=== PATIENT | male | born 1980 | race Hispanic/Latino ===

== ENCOUNTER 2025-01-05 17:41 | Emergency (ER) | payer OTHER ==
[2025-01-05] MEDS ORDERED: CLOPIDOGREL 75 MG TABLET ONE (17:54)
[2025-01-05] MEDS ORDERED: ONDANSETRON 4 MG/2 ML VIAL ONE (17:54)
[2025-01-05] MEDS ORDERED: MORPHINE 4 MG/ML SYR ONE (17:55)
[2025-01-05] MEDS ORDERED: HEPARIN 5000 UNIT/ML 1 ML VIAL ONE (17:55)
[2025-01-05] MEDS ORDERED: FAMOTIDINE 20 MG/2 ML VIAL IV ONE (17:55)
[2025-01-05] MEDS ORDERED: HEPARIN/D5W 25,000 UNIT/500 ML BAG IV ONE (17:55)
[2025-01-05] MEDS ORDERED: ASPIRIN 81 MG CHEWABLE TABLET ONE (17:55)
[2025-01-05] MEDS ORDERED: TENECTEPLASE 50 MG/10 ML VIAL IV ONE (17:58)
[2025-01-05 18:01] LABS: Absolute Basophils 0.1 K/uL (0-0.5); Absolute Eosinophils 0.1 K/uL (0-0.5); Absolute Lymphocytes (CBC) 3.8 K/uL (0.7-4.9); Absolute Monocytes 1.2 K/uL (0.1-1.3); Absolute Neutrophil 7.5 K/uL (1.8-8.0); Basophils % 0.8 % (0-1.3); Eosinophils % 1.1 % (0-4.4); Hematocrit 46.9 % (39.6-49.0); Lymphocytes % 29.9 % (15.3-44.8); MCH 32.1 pg (27.0-35.0); MCHC 36.3 g/dL (32.0-36.0); MCV 88.3 fL (80-100); MPV 9.4 fL (7.6-11.3); Monocytes % 9.1 % (3.3-12.3); Neutrophils % 59.1 % (41.7-73.7); Nucleated Red Blood Cells % 0.1 % (0-0); Platelets 268 thou/uL (152-406); RBC Red Blood Cell Count 5.31 M/uL (4.33-5.43); Red Cell Distribution Width 12.7 % (12.1-15.2)
[2025-01-05 18:02] LABS: Hemoglobin 16.1 g/dL (13.6-17.9)
[2025-01-05 18:07] LABS: PT Prothrombin Time 12.3 SECONDS (10-13.0); Protime INR 1.08
--- NOTE | 2025-01-05 18:13 | ER ---
Nurse's Notes [facility] Name: Charlie Lackey Age: 44 yrs Sex: Male : 1980 Arrival Date: 01/05/2025 Time: 17:41 Bed 6 Private MD: Diagnosis: ST elevation (STEMI) myocardial infarction involving other sites-ANTERIOR LATERAL [place], LAD/LEFT CIRC;Essential (primary) hypertension Presentation: 01/05 17:15 Chief complaint: EMS states: CHEST PAIN, HEAT EXHAUSTION GIVEN 2 NITRO BY EMS BP db 145/100. Coronavirus screen: Client denies travel out of the [place] in the last 14 days. At this time, the client does not indicate any symptoms associated with coronavirus-19. Ebola Screen: Patient negative for fever greater than or equal to 101.5 degrees Fahrenheit, and additional compatible Ebola Virus Disease symptoms Patient denies exposure to infectious person. Patient denies travel to an Ebola-affected area in the 21 days before illness onset. No symptoms or risks identified at this time. Initial Sepsis Screen: Does the patient meet any 2 criteria? No. Patient's initial sepsis screen is negative. Does the patient have a suspected source of infection? No. Patient's initial sepsis screen is negative. Risk Assessment: Do you want to hurt yourself or someone else? Patient reports no desire to harm self or others. Onset of symptoms was January 05, 2025. Care prior to arrival: Medication(s) given: Nitroglycerin, 0.4 mg SL x 2, IV initiated. 20 GA, in the left antecubital area, Glucose check: 346. 17:15 Method Of Arrival: EMS: [facility] db 17:15 Acuity: MARIELLE 1 db Historical: - Allergies: 17:52 No Known Allergies; db - Home Meds: 17:52 Metformin Oral [Active]; Lisinopril Oral [Active]; db - PMHx: 17:52 Diabetes mellitus; Hypertensive disorder; db - Immunization history:: Adult Immunizations up to date. - Infectious Disease History:: Denies. - Family history:: not pertinent. - Social history:: Smoking status: Patient denies any tobacco usage or history of. Screenin:28 [facility] ED Fall Risk Assessment (Adult) History of falling in the last 3 months, db including since admission No falls in past 3 months (0 pts) Confusion or Disorientation No (0 pts) Intoxicated or Sedated No (0 pts) Impaired Gait No (0 pts) Mobility Assist Device Used No (0 pt) Altered Elimination No (0 pt) Score/Fall Risk Level 0 - 2 = Low Risk Oriented to surroundings, Maintained a safe environment. Abuse screen: Denies threats or abuse. Denies injuries from another. Nutritional screening: No deficits noted. Tuberculosis screening: No symptoms or risk factors identified. Assessment: 17:52 Reassessment: pt is refusing TNK at this time. iw 18:20 Reassessment: REPORT GIVEN TO [facility]O AT [facility]. db 18:20 Reassessment: Patient appears in no apparent distress at this time. Patient and/or db family updated on plan of care and expected duration. Pain level reassessed. Patient is alert, oriented x 3, equal unlabored respirations, skin warm/dry/pink. LIFE FLIGHT AT PATIENT BEDSIDE. General: Appears distressed, uncomfortable, Behavior is cooperative, anxious. Pain: Complains of pain in chest Pain does not radiate. Pain Pain began suddenly. Neuro: Level of Consciousness is awake, alert, obeys commands, Oriented to person, place, time, situation. Cardiovascular: Reports chest pain, diaphoresis, lightheadedness, shortness of breath, Capillary refill < 3 seconds Rhythm is [place] Chest pain. Respiratory: Airway is patent Respiratory effort is even, unlabored, Respiratory pattern is regular, symmetrical. Vital Signs: 17:45 BP 137 / 93; Pulse 79; Resp 30; Temp 98.3; Pulse Ox 100% on R/A; Weight 97.98 kg; db 18:05 BP 127 / 105; Pulse 75; Resp 18; Pulse Ox 100% on 2 lpm NC; db 18:06 BP 149 / 97; Pulse 78; Resp 24; Pulse Ox 100% on 2 lpm NC; db 18:15 BP 123 / 93 (/pedi); Pulse 80; Resp 25; Pulse Ox 100% on 2 lpm NC; db [place] Coma Score: 18:28 Eye Response: spontaneous(4). Motor Response: obeys commands(6). Verbal Response: db oriented(5). Total: 15. ED Course: 17:44 Patient arrived in ED. bd 17:44 Vincent Mo MD is Attending Physician. minh 17:45 Initial lab(s) drawn, by me, sent to lab. Inserted saline lock: 20 gauge in right db antecubital area, using aseptic technique. Blood collected. Flushed with 10 mL NS. 17:45 Maintain EMS IV. Dressing intact. Good blood return noted. Site clean \T\ dry. Gauge \T\ db site: 20 G LEFT AC. Flushed with 10 mL NS. Oxygen administration via nasal cannula \T\ 2L/min Response to oxygen therapy: symptoms improved. 17:50 Diamond Aguilar, RN is Primary Nurse. db 17:52 Triage completed. db 18:04 transfer initiated to [facility] by dr mo. bd 18:08 pt accepted in transfer to [facility] by dr kruse, admin approval given by joe Waldron, pt transferred by stepan townsend. 18:28 Patient has correct armband on for positive identification. Bed in low position. Call db light in reach. Side rails up X 1. Provided Education on: TRANSFER. Client placed on continuous cardiac and pulse oximetry monitoring. NIBP monitoring applied. monitoring analyst on. Pulse ox on. NIBP on. 18:29 Arm band placed on Patient placed. db 18:29 No provider procedures requiring assistance completed. Patient transferred, IV remains db in place. Administered Medications: 17:58 Drug: Aspirin PO Chewable Tablet 324 mg PO once; 81 mg tablets x 4 Route: PO; cm10 18:31 Follow up: Response: No adverse reaction db 18:03 Drug: Clopidogrel PO 600 mg PO once Route: PO; cm10 18:31 Follow up: Response: No adverse reaction db 18:03 Drug: Tenecteplase IV (Administer 10 ml NS flush BEFORE and AFTER tenecteplase) 50 mg cm10 IV at per protocol once {Co-Signature: ss (Shayy Lewis RN).} Route: IV; Rate: per protocol; Site: right forearm; 18:30 Follow up: Response: No adverse reaction; IV Status: Completed infusion db 18:07 Drug: Ondansetron IVP 8 mg IVP once; over 2 minutes Route: IVP; Site: right forearm; cm10 18:30 Follow up: Response: No adverse reaction db 18:08 Drug: morphine IVP or IV 4 mg IVP once over 4 mins Route: IVP; Infused Over: 4 mins; cm10 Site: right forearm; 18:30 Follow up: Response: No adverse reaction db 18:11 Drug: Heparin ([place]-Bolus with thrombolytic) - HEParin IVP 60 units/kg IVP once; Max 4000 cm10 units {Co-Signature: delisa (Shayy Lewis RN).} Route: IVP; Site: right forearm; 18:30 Follow up: Response: No adverse reaction db 18:12 Drug: Heparin ([place] Drip) 12 units/kg/[place] - ([place] [address] units, D5W IV 500 ml) IV at cm10 calculated rate Per protocol; Max initial rate 1000 units/hr {Co-Signature: delisa (Shayy Lewis RN).} Route: IV; Rate: calculated rate; Site: right forearm; 18:29 Follow up: Response: No adverse reaction; IV Status: Infusion continued upon transfer db 18:13 Drug: Famotidine IVP 20 mg IVP once; dilute with 10 mL 0.9% NaCl; give over 2 minutes cm10 Route: IVP; Site: left antecubital; 18:31 Follow up: Response: No adverse reaction db Medication: 18:28 VIS not applicable for this client. db Outcome: 18:13 ER care complete, transfer ordered by MD. wilkinson 18:28 Transferred by helicopter to [facility], Transfer form completed. db X-rays sent w/ patient. 18:28 critical 18:28 Instructed on the need for transfer, 18:31 Patient left the ED. db Signatures: Carmen Merritt Corey, MD MD cha Williams, Irene, RN RN Diamond Augilar RN RN db Martinez, Clarissa, RN RN cm10 Shayy Lewis RN ss Corrections: (The following items were deleted from the chart) 18:16 17:52 PMHx: Hypertensive disorder; db db 18:18 18:11 Heparin ([place]-Bolus with thrombolytic) - HEParin IVP 5878.8 units IVP in right cm10 forearm cm10 18:21 17:45 BP 137 / 93; Pulse 79bpm; Resp 30bpm; Temp 98.3F; 97.98 kg; db db
--- NOTE | 2025-01-05 18:13 | EDPHYS ---
Physician Documentation [facility] Name: Charlie Lackey Age: 44 yrs Sex: Male : 1980 Arrival Date: 01/05/2025 Time: 17:41 Bed 6 Private MD: DOMINGO Physician Vincent Mo HPI: 01/05 17:54 This 44 yrs old Male presents to ER via EMS with complaints of Chest Pain. [facility] 17:54 The patient or guardian reports chest pain that is located primarily in the substernal minh area. Onset: just prior to arrival. The pain does not radiate. Associated signs and symptoms: Pertinent positives: dizziness, nausea, shortness of breath. The chest pain is described as a heaviness, a pressure. Duration: The patient or guardian reports a single episode, that is still ongoing. Modifying factors: The symptoms are alleviated by nothing. the symptoms are aggravated by nothing. Severity of pain: At its worst the pain was moderate in the emergency department the pain is unchanged. EMS care prior to arrival includes: IV fluids, nitroglycerin, supplemental oxygen. The patient has experienced a previous episode, many years ago. Historical: - Allergies: 17:52 No Known Allergies; db - Home Meds: 17:52 Metformin Oral [Active]; Lisinopril Oral [Active]; db - PMHx: 17:52 Diabetes mellitus; Hypertensive disorder; db - Immunization history:: Adult Immunizations up to date. - Infectious Disease History:: Denies. - Family history:: not pertinent. - Social history:: Smoking status: Patient denies any tobacco usage or history of. ROS: 17:54 Constitutional: Negative for fever, chills, and weight loss, Eyes: Negative for injury, minh pain, redness, and discharge, ENT: Negative for injury, pain, and discharge, Neck: Negative for injury, pain, and swelling, Respiratory: Negative for shortness of breath, cough, wheezing, and pleuritic chest pain, Abdomen/GI: Negative for abdominal pain, nausea, vomiting, diarrhea, and constipation, Back: Negative for injury and pain, : Negative for injury, bleeding, discharge, and swelling, MS/Extremity: Negative for injury and deformity, Skin: Negative for injury, rash, and discoloration, Neuro: Negative for headache, weakness, numbness, tingling, and seizure, Psych: Negative for depression, anxiety, suicide ideation, homicidal ideation, and hallucinations, Allergy/Immunology: Negative for hives, rash, and allergies, Endocrine: Negative for neck swelling, polydipsia, polyuria, polyphagia, and marked weight changes, Hematologic/Lymphatic: Negative for swollen nodes, abnormal bleeding, and unusual bruising, 17:54 Cardiovascular: Positive for chest pain, of the chest, Exam: 18:04 Constitutional: This is a well developed, well nourished patient who is awake, alert, minh and in no acute distress. Head/Face: Normocephalic, atraumatic. Eyes: Pupils equal round and reactive to light, extra-ocular motions intact. Lids and lashes normal. Conjunctiva and sclera are non-icteric and not injected. Cornea within normal limits. Periorbital areas with no swelling, redness, or edema. ENT: Nares patent. No nasal discharge, no septal abnormalities noted. Tympanic membranes are normal and external auditory canals are clear. Oropharynx with no redness, swelling, or masses, exudates, or evidence of obstruction, uvula midline. Mucous membranes moist. Neck: Trachea midline, no thyromegaly or masses palpated, and no cervical lymphadenopathy. Supple, full range of motion without nuchal rigidity, or vertebral point tenderness. No Meningismus. Chest/axilla: Normal chest wall appearance and motion. Nontender with no deformity. No lesions are appreciated. Respiratory: Lungs have equal breath sounds bilaterally, clear to auscultation and percussion. No rales, rhonchi or wheezes noted. No increased work of breathing, no retractions or nasal flaring. Abdomen/GI: Soft, non-tender, with normal bowel sounds. No distension or tympany. No guarding or rebound. No evidence of tenderness throughout. Back: No spinal tenderness. No costovertebral tenderness. Full range of motion. Male : Normal genitalia with no discharge or lesions. Skin: Warm, dry with normal turgor. Normal color with no rashes, no lesions, and no evidence of cellulitis. MS/ Extremity: Pulses equal, no cyanosis. Neurovascular intact. Full, normal range of motion., bilateral aka Neuro: Awake and alert, GCS 15, oriented to person, place, time, and situation. Cranial nerves II-XII grossly intact. Motor strength 5/5 in all extremities. Sensory grossly intact. Cerebellar exam normal. Normal gait. Psych: Awake, alert, with orientation to person, place and time. Behavior, mood, and affect are within normal limits. 18:04 Cardiovascular: Rate: actual rate is 75 bpm, Rhythm: regular, Pulses: Pulses are 4+ in bilateral radial, brachial, femoral, popliteal, posterior tibial and and dorsalis pedis arteries.. Heart sounds: normal, Edema: is not appreciated, JVD: is not appreciated, 18:04 ECG was reviewed by the Attending Physician. Vital Signs: 17:45 BP 137 / 93; Pulse 79; Resp 30; Temp 98.3; Pulse Ox 100% on R/A; Weight 97.98 kg; db 18:05 BP 127 / 105; Pulse 75; Resp 18; Pulse Ox 100% on 2 lpm NC; db 18:06 BP 149 / 97; Pulse 78; Resp 24; Pulse Ox 100% on 2 lpm NC; db 18:15 BP 123 / 93 (/pedi); Pulse 80; Resp 25; Pulse Ox 100% on 2 lpm NC; db [place] Coma Score: 18:28 Eye Response: spontaneous(4). Motor Response: obeys commands(6). Verbal Response: db oriented(5). Total: 15. MDM: 17:45 Medical Screening Exam initiated minh 18:07 Differential diagnosis: abnormal EKG, acute myocardial infarction, chest wall pain, minh Cholelithiasis esophagitis, hiatal hernia, Sera-Stevens syndrome, pancreatitis, peptic ulcer disease, pericarditis, pleurisy, pneumonia, pulmonary embolus, stable angina, thoracic aortic disection, unstable angina. HEART Score: History: Highly Suspicious (2), ECG: Significant ST-deviation (2), Age: < or = 45 years (0). The patient was given aspirin in the Emergency Department. TRAVON Risk Score: 1 - Three or more CAD risk factors, 1- Known CAD, 1 - Recent [<24hrs] Severe Angina, 1 - ST deviation >0.5mm, TOTAL SCORE = 3. Data reviewed: vital signs, nurses notes, EMS record, lab test result(s), EKG, radiologic studies, plain films. Consideration of Admission/Observation Escalation of care including admission/observation considered. I considered the following discharge prescriptions or medication management in the emergency department Medications were administered in the Emergency Department. See MAR. Independent interpretation of the following test(s) in the Emergency Department EKG: See my EKG interpretation above. Test considered but Not performed: Ultrasound NO 2 D ECHO. Care significantly affected by the following chronic conditions: Hypertension, Obesity, CAD , STENT. Counseling: I had a detailed discussion with the patient and/or guardian regarding the historical points, exam findings, and any diagnostic results supporting the discharge/admit diagnosis, the presence of at least one elevated blood pressure reading (>120/80) during this emergency department visit, lab results, radiology results, the need to transfer to another facility, for higher level of care, [facility] does not immediately have the required specialist. 01/05 17:50 Order name: Basic Metabolic Panel [facility] 01/05 17:50 Order name: CBC with Diff [facility] 01/05 17:50 Order name: LFT's [facility] 01/05 17:50 Order name: Magnesium [facility] 01/05 17:50 Order name: NT PRO-BNP [facility] 01/05 17:50 Order name: PT-INR [facility] 01/05 17:50 Order name: Troponin HS [facility] 01/05 17:50 Order name: Lipase [facility] 01/05 17:50 Order name: EKG; Complete Time: 17:51 [facility] 01/05 17:50 Order name: Cardiac monitoring [facility] 01/05 17:50 Order name: EKG - Nurse/Tech [facility] 01/05 17:50 Order name: IV Saline Lock [facility] 01/05 17:50 Order name: Labs collected and sent minh 01/05 17:50 Order name: O2 Per Protocol [facility] 01/05 17:50 Order name: O2 Sat Monitoring [facility] 01/05 17:50 Order name: Misc. Order: ZOLLS; Complete Time: 18:16 [facility] EC:04 Rate is 75 beats/min. Rhythm is regular. QRS [place] is Normal. [place] interval is normal. QRS minh interval is normal. No Q waves. T waves are Normal. ST Segment is elevated in leads I, aVL, V2, V3, V4, V5. Clinical impression: Anterior OR - acute and Lateral OR - acute. Interpreted by me. Reviewed by me. Administered Medications: 17:58 Drug: Aspirin PO Chewable Tablet 324 mg PO once; 81 mg tablets x 4 Route: PO; cm10 18:31 Follow up: Response: No adverse reaction db 18:03 Drug: Clopidogrel PO 600 mg PO once Route: PO; cm10 18:31 Follow up: Response: No adverse reaction db 18:03 Drug: Tenecteplase IV (Administer 10 ml NS flush BEFORE and AFTER tenecteplase) 50 mg cm10 IV at per protocol once {Co-Signature: delisa (Shayy Lewis RN).} Route: IV; Rate: per protocol; Site: right forearm; 18:30 Follow up: Response: No adverse reaction; IV Status: Completed infusion db 18:07 Drug: Ondansetron IVP 8 mg IVP once; over 2 minutes Route: IVP; Site: right forearm; cm10 18:30 Follow up: Response: No adverse reaction db 18:08 Drug: morphine IVP or IV 4 mg IVP once over 4 mins Route: IVP; Infused Over: 4 mins; cm10 Site: right forearm; 18:30 Follow up: Response: No adverse reaction db 18:11 Drug: Heparin ([place]-Bolus with thrombolytic) - HEParin IVP 60 units/kg IVP once; Max 4000 cm10 units {Co-Signature: delisa (Shayy Lewis RN).} Route: IVP; Site: right forearm; 18:30 Follow up: Response: No adverse reaction db 18:12 Drug: Heparin ([place] Drip) 12 units/kg/[place] - ([place] [address] units, D5W IV 500 ml) IV at cm10 calculated rate Per protocol; Max initial rate 1000 units/hr {Co-Signature: delisa (Shayy Lewis RN).} Route: IV; Rate: calculated rate; Site: right forearm; 18:29 Follow up: Response: No adverse reaction; IV Status: Infusion continued upon transfer db 18:13 Drug: Famotidine IVP 20 mg IVP once; dilute with 10 mL 0.9% NaCl; give over 2 minutes cm10 Route: IVP; Site: left antecubital; 18:31 Follow up: Response: No adverse reaction db Disposition Summary: 01/05/25 18:13 Transfer Ordered Notes: Transfer Location: [facility] minh Reason: Higher level of care minh Condition: Serious minh Problem: new minh Symptoms: are unchanged minh Accepting Physician: PATRICIA CARR(01/05/25 18:31) db Diagnosis - ST elevation (STEMI) myocardial infarction involving other sites - ANTERIOR LATERAL minh [place], LAD/LEFT CIRC - Essential (primary) hypertension minh Forms: - Medication Reconciliation Form minh - SBAR form minh Signatures: Dispatcher [employer] EDMS Vincent Mo MD MD cha Benton, Danielle RN RN db Letty Fernandez RN RN cm10 Shayy Lewis RN ss Corrections: (The following items were deleted from the chart) 17:51 17:51 BASIC METABOLIC PANEL+C.LAB.BRZ ordered. EDMS EDMS 17:51 17:51 CBC+H.LAB.BRZ ordered. EDMS EDMS 17:51 17:51 HEPATIC FUNCTION+C.LAB.BRZ ordered. EDMS EDMS 17:51 17:51 MAGNESIUM+C.LAB.BRZ ordered. EDMS EDMS 17:51 17:51 PROBNP+C.LAB.BRZ ordered. EDMS EDMS 17:51 17:51 PROTIME (+INR)+COAG.LAB.BRZ ordered. EDMS EDMS 17:51 17:51 Troponin High Sensitivity+C.LAB.BRZ ordered. EDMS EDMS 17:51 17:51 LIPASE+C.LAB.BRZ ordered. EDMS EDMS 18:13 18:13 TO DAVIDA VAZQUEZTH PATRICIA minh minh 18:16 17:52 PMHx: Hypertensive disorder; db db 18:31 18:13 TO DAVIDA VAZQUEZTH EUNKIMBERLY wilkinson db
[2025-01-05 18:21] LABS: Albumin 3.9 g/dL (3.4-5.0); Albumin/Globulin Ratio 0.8 (1.1-1.8); Anion Gap 15.2 mEq/L (5.0-15.0); Bilirubin Direct 0.2 mg/dL (0-0.2); Bilirubin Indirect, Calculated 0.5 mg/dL (0.2-0.8); Bilirubin Total 0.7 mg/dL (0.2-1.0); Globulin 4.6 g/dL (2.3-3.5); Magnesium 1.7 mg/dL (1.6-2.4); Potassium 3.2 mEq/L (3.5-5.1); Protein, Total 8.5 g/dL (6.4-8.2); Troponin High Sensitivity 10.6 pg/mL (<58.9)
[2025-01-05 18:50] VITALS: TEMP 98.3; O2SAT 100
[2025-01-05 18:53] VITALS: BP 123/93
--- NOTE | 2025-01-10 17:00 | EKG ---
Test Date: 2025-01-05 Test Time: 18:06:55 Aluminum Shingle Roofer: MAUREEN MEASUREMENT RESULTS: Intervals: Rate: 79 MA: 138 QRSD: 90 QT: 368 QTc: 421 [place]: P: 36 MA: 138 QRS: -2 T: 1 INTERPRETIVE STATEMENTS: Normal sinus rhythm Low voltage QRS Anteroseptal infarct, possibly acute Lateral injury pattern ACUTE [place] / STEMI Abnormal ECG Compared to ECG 01/05/2025 17:45:38 Low QRS voltage now present Sinus arrhythmia no longer present Myocardial infarct finding still present Electronically Signed On 01-10-25 16:52:32 CDT by Matthew oHward
--- NOTE | 2025-01-10 17:00 | EKG ---
Test Date: 2025-01-05 Test Time: 17:45:38 Mechanical Technologist: MAUREEN MEASUREMENT RESULTS: Intervals: Rate: 75 VT: 130 QRSD: 92 QT: 372 QTc: 415 [place]: P: 71 VT: 130 QRS: 84 T: -2 INTERPRETIVE STATEMENTS: Normal sinus rhythm with sinus arrhythmia Anterior infarct, possibly acute Lateral injury pattern ACUTE [place] / STEMI Abnormal ECG Compared to ECG 01/05/2025 17:44:35 No significant changes Electronically Signed On 01-10-25 16:52:44 CDT by Matthew Howard
--- NOTE | 2025-01-10 17:00 | EKG ---
Test Date: 2025-01-05 Test Time: 17:44:35 Stone Setter: MAUREEN MEASUREMENT RESULTS: Intervals: Rate: 80 RI: 130 QRSD: 94 QT: 372 QTc: 429 [place]: P: 70 RI: 130 QRS: 82 T: -3 INTERPRETIVE STATEMENTS: Normal sinus rhythm Anteroseptal infarct, age undetermined Lateral injury pattern ACUTE [place] / STEMI Abnormal ECG No previous ECG available for comparison Electronically Signed On 01-10-25 16:52:50 CDT by Matthew Howard
== END 2025-01-05 18:31 | disposition short-term general hospital (02) ==
LOC: ER 17:41
DX: I21.09 ST elevation (STEMI) myocardial infarction involving other coronary artery of anterior wall (principal); I10 Essential (primary) hypertension; E11.9 Type 2 diabetes mellitus without complications
CPT/HCPCS: 85025; 80048; 36415; 83735; 85610; 80076; 84484; 83690; 83880; J1644; J3101; J2405; 92977; 93005; 99285